=== PATIENT | female | born 2005 | race Caucasian/White ===

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

== ENCOUNTER → 2023-01-28 13:10 | Outpatient (BNVA) | payer BC, MEDICAID, SELFPAY | PROVIDERS: PCP Nurse Practitioner; Visit Provider Nurse Practitioner | DX: R39.9 Unspecified symptoms and signs involving the genitourinary system (principal) | CPT/HCPCS: 81000 ==

== ENCOUNTER → 2023-02-20 16:25 | Outpatient (BNVA) | payer BC, MEDICAID, SELFPAY | PROVIDERS: PCP Nurse Practitioner; Visit Provider Nurse Practitioner Family | DX: N39.0 Urinary tract infection, site not specified (principal); N76.0 Acute vaginitis; B96.89 Other specified bacterial agents as the cause of diseases classified elsewhere | CPT/HCPCS: 80053; 81000; 84443; 85025; 87491; 87591 ==

== ENCOUNTER 2023-03-14 11:46 | Outpatient (CLI) | payer BC, MEDICAID, SELFPAY ==
--- NOTE | 2023-03-14 12:00 | US_ITS ---
WS: [id number] RENAL ULTRASOUND URINARY BLADDER ULTRASOUND HISTORY: N91.2 - Amenorrhea, unspecified COMPARISON: None available. TECHNIQUE: 2-D and color Doppler imaging of the kidney submitted. Right kidney: 10.4 cm x 5.1 cm x 4.2 cm. Normal echogenicity with no hydronephrosis or mass. Left kidney: 9.7 cm x 4.6 cm x 4.5 cm. Normal echogenicity with no hydronephrosis or mass. Aorta: Normal. Urinary Bladder: Normal distention. No post void residual. IMPRESSION: Normal renal ultrasound. Normal urinary bladder with no post void residual.
--- NOTE | 2023-03-14 13:00 | US_ITS ---
WS: [id number] US pelv w/transvag [id number] HISTORY: N91.2 - Amenorrhea, unspecified COMPARISON: None available. Uterus: 8.1 cm x 4.5 cm x 2.8 cm. Normal size anteverted uterus. No fibroid or mass. Endometrium: 0.4 cm. Normal. Right ovary: 3.1 cm x 2.1 cm x 2.4 cm. Normal size and vascularity, no cystic or solid masses. Left ovary: 5.4 cm x 4.4 cm x 2.7 cm. LEFT ovarian cyst measures 4.3 x 3.7 x 2.6 cm. This is a simple cyst. No solid mass. Normal vascularity. No free fluid in the cul-de-sac. IMPRESSION: 1. Simple LEFT ovarian cyst, O RADS 2. 2. Otherwise normal. Normal endometrium.
== END 2023-03-14 11:47 | disposition home or self-care (01) ==
LOC: RAD 11:46
PROVIDERS: PCP Nurse Practitioner; Visit Provider Nurse Practitioner Family
DX: N39.0 Urinary tract infection, site not specified (principal); N91.2 Amenorrhea, unspecified; R33.9 Retention of urine, unspecified; N83.292 Other ovarian cyst, left side
CPT/HCPCS: 76770; 76830; 76856; 76857

== ENCOUNTER 2023-04-10 11:06 | Outpatient (CLI) | payer BC, MEDICAID, SELFPAY ==
[2023-04-10 11:48] LABS: Free T4 Free Thyroxine 1.31 ng/dL (0.93-1.60); Thyroid Stimulating Hormone 1.05 uIU/mL (0.27-4.20)
[2023-04-10 13:09] LABS: Prolactin 13.64 ng/mL (4.8-23.3)
== END 2023-04-10 11:07 | disposition home or self-care (01) ==
LOC: LAB 11:10
PROVIDERS: PCP Nurse Practitioner; Visit Provider Nurse Practitioner Women's Health
DX: N92.6 Irregular menstruation, unspecified (principal)
CPT/HCPCS: 36415; 84146; 84439; 84443; 84702

== ENCOUNTER → 2023-04-29 10:15 | Outpatient (BNVA) | payer BC, MEDICAID, SELFPAY | PROVIDERS: PCP Nurse Practitioner; Visit Provider Registered Nurse Neonatal Intensive Care | DX: R05.9 Cough, unspecified (principal) | CPT/HCPCS: 87400; 87426 ==

== ENCOUNTER → 2024-01-29 16:38 | Outpatient (BNVA) | payer OTHER, SELFPAY | PROVIDERS: PCP Nurse Practitioner; Visit Provider Nurse Practitioner | DX: R30.0 Dysuria (principal) | CPT/HCPCS: 81000 ==

== ENCOUNTER → 2024-03-26 09:07 | Outpatient (BNVA) | payer OTHER, SELFPAY | PROVIDERS: PCP Nurse Practitioner | DX: R39.9 Unspecified symptoms and signs involving the genitourinary system (principal) | CPT/HCPCS: 81000; 87086 ==

== ENCOUNTER → 2024-10-30 10:28 | Outpatient (BNVA) | payer BC, SELFPAY | PROVIDERS: PCP Nurse Practitioner; Visit Provider Nurse Practitioner | DX: R39.9 Unspecified symptoms and signs involving the genitourinary system (principal); N39.0 Urinary tract infection, site not specified | CPT/HCPCS: 81000; 87077; 87086; 87184 ==